=== PATIENT | male | born 1970 | race Caucasian/White ===

== ENCOUNTER 2017-12-21 12:56 | Outpatient (CLI) | payer MEDICARE | END 2017-12-21 12:57 | disposition home or self-care (01) | LOC: BICRAD 12:56 | PROVIDERS: ATTEND Internal Medicine Hematology & Oncology | DX: J18.9 Pneumonia, unspecified organism (principal); J90 Pleural effusion, not elsewhere classified; R91.8 Other nonspecific abnormal finding of lung field | CPT/HCPCS: 71046 ==

== ENCOUNTER 2017-12-21 14:47 | Day surgery (SDC) | payer MEDICARE ==
[2017-12-21 17:37] LABS: Pleural Fluid, Protein 4.8 g/dL
--- NOTE | 2017-12-21 17:39 | CON ---
DATE OF CONSULTATION: 12/21/2017 SERVICE: Pulmonary Medicine. REASON FOR CONSULTATION: Pleural effusion. HISTORY OF PRESENT ILLNESS: The patient is a very pleasant 47-year-old white male with past medical history significant for cough and congestion about a month ago. He was treated for flu and also a co urse of pneumonia. He was identified as having a small pleural effusion in the right lung. He had i ncreasing shortness of breath and presented for a routine evaluation and Oncology. The patient noted his progressive shortness of breath and repeat chest x-ray was performed demonstrated progression in his pleural effusion. At this point, it is quite large. He has serious orthopnea. He has not had any other types of lower extremity swelling, chest discomfort, palpitations, nausea and vomiting or d iarrhea. He has been belching quite a bit recently. Otherwise, there has been no interval change to his condition. He is having some febrile type symptoms and is experiencing some chills. PAST MEDICAL HISTORY: 1. Type 2 diabetes mellitus, resolved. 2. Hypertension. 3. Dyslipidemia. 4. 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 5. 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 PAST SURGICAL HISTORY: 1. Cholecystectomy. 2. Left shoulder surgery in 2017. 3. Inguinal hernia repair in 2016. 4. Umbilical hernia repair with mesh placement. 5. Back surgery in 2017. 6. Left knee surgery x2. FAMILY HISTORY: Noncontributory. He notes lung cancer, diabetes, and high blood pressure in primary family members. SOCIAL HISTORY: Negative for alcohol, tobacco or illicit drug use. He denies any exposure to chemic als, dusts, asbestos or tuberculosis. ALLERGIES: 1. LIBRIUM causes vomiting. 2. LISINOPRIL causes cough. MEDICATIONS: He did not bring a list of his medications with him today, so I do not have them for re view. I did review the medications that were listed in his current medication section of the Oncolog y note that accompanied him to his visit. There are no respiratory medications on it. REVIEW OF SYSTEMS: General, head, ears, eyes, nose, throat, cardiovascular, respiratory, GI, , mus culoskeletal, neurologic and skin is negative except as mention in the HPI. PHYSICAL EXAMINATION: VITAL SIGNS: Afebrile, pulse 87, respirations 14, saturation 91% on room air. GENERAL: The patient is awake, alert, no apparent distress. LUNGS: Decent air entry on the left. The right has decreased air entry. There are no crackles pres ent. HEART: Normal rate, regular. ABDOMEN: Soft, nontender, nondistended. Bowel sounds are positive. MUSCULOSKELETAL: No cyanosis or clubbing. No pitting in the bilateral lower extremities. NEUROLOGIC: Grossly nonfocal. LABORATORY DATA: WBC 10.3, hemoglobin 15.6, platelets 342,000. Comprehensive metabolic profile was previously unremarkable with a creatinine of 1.01. IMAGING: Chest x-ray demonstrates a large right-sided pleural effusion that is worse than 1 month ag o. ASSESSMENT: 1. Pleural effusion, not otherwise specified. 2. History of stage IV T-cell lymphoma, status post CHOP/etoposide therapy as well as autologous tyrel m cell transplant in 2014. PLAN: The patient will return to clinic in 1 week. We will set him up with a thoracentesis for this as soon as possible. If any of these results are abnormal, we will give him a phone call. If he garcia s any true fever, or starts feeling worse, he has been directed to present immediately to the emergen cy department.
[2017-12-21 17:50] LABS: BF Color Yellow; BF RBC Count - Manual 2385 /cumm; Body Fluid Source THORACENTESIS FLD; Clarity Hazy (Clear); Tube # 2
[2017-12-21 18:01] LABS: BF WBC/Nonhematics Ct. - Manua 275 /cumm; Cell Count Non Hematic 41 %; Lymphocytes 59 %
[2017-12-21 18:02] LABS: BF Segmented Neutrophils 1 %
--- NOTE | 2017-12-21 19:28 | OP ---
DATE OF SERVICE: 12/21/2017 SERVICE: Pulmonary Medicine. PROCEDURE: Right-sided pleural drainage with catheter insertion, under ultrasound guidance. CONSENT: Risks and benefits of the procedure were explained to the patient. All questions were answ ered and alternative options explained. STAFF PHYSICIAN: Edmond López M.D. MEDICATIONS USED: 1% lidocaine without epinephrine, a total quantity 10 mL PREPROCEDURE DIAGNOSES: 1. Pleural effusion. 2. Acute hypoxic respiratory failure. POSTOPERATIVE DIAGNOSES: 1. Pleural effusion. 2. Acute hypoxic respiratory failure. DESCRIPTION OF PROCEDURE: A timeout was performed by the procedure team and the patient. The patien t was positively identified using name and date of . The procedure site was marked. Vital sign s monitoring was accomplished by noninvasive hemodynamic monitoring, pulse oximetry, and telemetry. In the seated position, the right posterior hemithorax was examined using ultrasound probe. The diap hragm and pleural fluid was easily identified. The skin was prepped and draped in sterile fashion an d anesthetized with 1% lidocaine without epinephrine. A finder needle was inserted into the pleural space with return of clear yellow fluid was obtained. A pleural drainage catheter was then inserted in the same location. A total quantity of 4000 mL of the same pleural fluid was withdrawn by syringe pump technique. A sample was sent for analysis. Evacuation was terminated because the fluid stoppe d coming. At the end of the procedure, estimated pleural pressure, measured by manometry, was -7 cm of pleural fluid. The entire catheter was withdrawn on exhalation and a sterile dressing was applied . The patient had stable vital signs throughout the entire procedure. ESTIMATED BLOOD LOSS: Less than 2 mL COMPLICATIONS: None.
[2017-12-26 10:22] LABS: Fungus Stain Final report (.)
[2018-01-22 06:09] LABS: Fungus Culture Final report (.)
== END 2017-12-21 16:50 | disposition home or self-care (01) ==
LOC: SDC 14:47
PROVIDERS: ATTEND Internal Medicine
PROC: 0W993ZZ Drainage of Right Pleural Cavity, Percutaneous Approach (ICD-10-PCS; principal; 2017-12-21)
PROC: BB4BZZZ Ultrasonography of Pleura (ICD-10-PCS; 2017-12-21)
DX: J90 Pleural effusion, not elsewhere classified (principal); J96.01 Acute respiratory failure with hypoxia; E11.9 Type 2 diabetes mellitus without complications; I10 Essential (primary) hypertension; E78.5 Hyperlipidemia, unspecified; Z85.6 Personal history of leukemia; Z92.21 Personal history of antineoplastic chemotherapy; Z88.8 Allergy status to other drugs, medicaments and biological substances; Z91.011 Allergy to milk products; Z91.018 Allergy to other foods; Z91.048 Other nonmedicinal substance allergy status; Z88.5 Allergy status to narcotic agent; Z79.82 Long term (current) use of aspirin; Z79.899 Other long term (current) drug therapy
CPT/HCPCS: 32554; 82150; 82945; 83615; 83986; 84157; 84478; 85060; 87070; 87102; 87116; 87205; 87206; 88112; 88184; 88305; 89051; J1642

== ENCOUNTER 2017-12-29 13:14 | Day surgery (SDC) | payer MEDICARE ==
[2017-12-28 15:42] VITALS: BMI 31.8
[2017-12-29] MEDS ORDERED: Promethazine HCl 25 MG/ML VIAL ONE (14:09)
[2017-12-29] MEDS ORDERED: Fentanyl 250 MCG/5 ML VIAL ONE (14:09)
[2017-12-29] MEDS ORDERED: Midazolam HCl 2 mg/2 ml Vial ONE (14:09)
[2017-12-29] MEDS ORDERED: Lidocaine 1% (PF) 30 ML VIAL ONE (14:09)
[2017-12-29] MEDS ORDERED: Propofol 500 MG/50 ML VIAL ONE (14:11)
[2017-12-29 14:41] LABS: Anion Gap 16 mmol/L (10-20); BUN (Urea Nitrogen) 9 mg/dL (8.9-20.6); Calc. Creatinine Clearance 180 mL/min (70-130); Calcium 9.3 mg/dL (7.8-10.44); Carbon Dioxide 27 mmol/L (22-29); Chloride 97 mmol/L (98-107); Estimated GFR-MDRD Greater than 90; Glucose 111 mg/dL (70-105); Potassium 3.8 mmol/L (3.5-5.1); Sodium 136 mmol/L (136-145)
[2017-12-29 14:46] LABS: #Basophils 0.1 thou/uL (0.0-0.2); #Eosinphils 0.1 thou/uL (0.0-0.7); #Lymphocytes 1.7 thou/uL (1.20-3.40); #Neutrophils 5.5 thou/uL (1.40-6.50); %Basophils 0.7 % (0.0-1.0); %Lymphocytes 20.2 % (21.0-51.0); %Monocytes 11.4 % (0.0-10.0); %Neutrophils 66.6 % (42.0-75.0); Hemoglobin 16.7 g/dL (14.0-18.0); Mean Corpuscular HGB CONC 34.1 g/dL (32.0-36.0); Mean Corpuscular Volume 94.1 fl (80.0-94.0); Mean Platelet Volume 6.7 fL (7.4-10.4); Platelet Count 397 thou/uL (130-400); RBC Distribution Width 11.5 % (11.5-14.5); White Blood Cell (WBC) Count 8.3 thou/uL (4.8-10.8)
[2017-12-29] MEDS ORDERED: HYDROcodone/Acetaminophen 5/325 mg Tablet ONE (16:30)
--- NOTE | 2017-12-29 17:07 | OP ---
DATE OF PROCEDURE: 12/29/2017 PREOPERATIVE DIAGNOSIS: Recurrent right malignant pleural effusion. POSTOPERATIVE DIAGNOSIS: Recurrent right malignant pleural effusion. PROCEDURE: Right PleurX catheter placement. SURGEON: Gaetano Miller M.D. ANESTHESIA: IV sedation provided by Lois Vega CRNA and 1% lidocaine for local. DESCRIPTION OF PROCEDURE: After consent was obtained, the patient was brought to the operating room and placed in the supine position on the operating room table. Appropriate anesthetic monitor was pl aced and IV sedation begun. Right chest wall was prepped and draped in usual sterile fashion. 1% li docaine was used to anesthetize the chest wall. Skin incision was made for insertion of the guidewir e. Guidewire was inserted. Catheter was tunneled from the midclavicular line over to the guidewire access site. Peel peel-away sheath was then placed into the pleural cavity with good clear fluid ret urn. Catheter was passed through the peel-away sheath and sheath removed. Catheter was then connect ed to suction and 6750 mL of fluid evacuated. Catheter was secured with silk suture. The sheath acc ess site was closed with a 3-0 Vicryl. Sterile dressing was applied. The patient was transferred to the recovery area and home later today.
== END 2017-12-29 16:45 | disposition home or self-care (01) ==
LOC: SDC 13:14
PROVIDERS: ATTEND Thoracic Surgery (Cardiothoracic Vascular Surgery)
PROC: 0WH933Z Insertion of Infusion Device into Right Pleural Cavity, Percutaneous Approach (ICD-10-PCS; principal; 2017-12-29)
DX: C86.2 Enteropathy-type (intestinal) T-cell lymphoma (principal); J91.0 Malignant pleural effusion; E11.9 Type 2 diabetes mellitus without complications; I10 Essential (primary) hypertension; E78.5 Hyperlipidemia, unspecified; Z88.8 Allergy status to other drugs, medicaments and biological substances; Z88.5 Allergy status to narcotic agent; Z91.048 Other nonmedicinal substance allergy status; Z91.011 Allergy to milk products; Z91.018 Allergy to other foods; Z79.82 Long term (current) use of aspirin; Z79.899 Other long term (current) drug therapy; Z94.84 Stem cells transplant status
CPT/HCPCS: 80048; 85025; C1729; J2001; J2250; J2550; J2704; J3010

== ENCOUNTER 2018-01-04 17:00 | Outpatient (CLI) | payer MEDICARE | END 2018-01-04 17:01 | disposition home or self-care (01) | LOC: SLEEPLAB 17:00 | PROVIDERS: ATTEND Internal Medicine | DX: G47.33 Obstructive sleep apnea (adult) (pediatric) (principal); R51 Headache; R53.83 Other fatigue; R06.83 Snoring; K21.9 Gastro-esophageal reflux disease without esophagitis; R35.1 Nocturia; R09.02 Hypoxemia; R06.00 Dyspnea, unspecified | CPT/HCPCS: 95806 ==

== ENCOUNTER 2018-03-27 12:51 | Emergency (ER) | payer MEDICARE ==
[2018-03-27 14:04] LABS: #Eosinphils 0.1 thou/uL (0.0-0.7); #Lymphocytes 1.7 thou/uL (1.20-3.40); #Monocytes 0.1 thou/uL (0.11-0.59); #Neutrophils 3.6 thou/uL (1.40-6.50); %Basophils 0.3 % (0.0-1.0); %Eosinophils 1.3 % (0.0-10.0); %Lymphocytes 31.5 % (21.0-51.0); %Monocytes 1.2 % (0.0-10.0); %Neutrophils 65.8 % (42.0-75.0); Hemoglobin 10.2 g/dL (14.0-18.0); Mean Corpuscular HGB CONC 35.4 g/dL (32.0-36.0); Mean Corpuscular Hemoglobin 36.9 pg (27.0-31.0); Mean Platelet Volume 6.8 fL (7.4-10.4); Platelet Count 230 thou/uL (130-400); RBC Distribution Width 16.2 % (11.5-14.5); Red Blood Cell (RBC) Count 2.75 mill/uL (4.70-6.10); White Blood Cell (WBC) Count 5.5 thou/uL (4.8-10.8)
[2018-03-27 14:24] LABS: ALT (SGPT) 79 U/L (8-55); AST (SGOT) 37 U/L (5-34); Albumin 3.6 g/dL (3.5-5.0); Alkaline Phosphatase 59 U/L (40-150); Anion Gap 13 mmol/L (10-20); BUN (Urea Nitrogen) 16 mg/dL (8.9-20.6); Bilirubin, Total 0.7 mg/dL (0.2-1.2); Calc. Creatinine Clearance 0 mL/min (70-130); Calcium 9.2 mg/dL (7.8-10.44); Carbon Dioxide 25 mmol/L (22-29); Chloride 101 mmol/L (98-107); Estimated GFR-MDRD Greater than 90; Globulin 2.3 g/dL (2.4-3.5); Glucose 190 mg/dL (70-105); Potassium 4.2 mmol/L (3.5-5.1); Protein, Total 5.9 g/dL (6.0-8.3); Sodium 135 mmol/L (136-145)
[2018-03-27 14:29] LABS: CKMB 0.3 ng/mL (0-6.6); Troponin I Less than 0.010 ng/mL (< 0.028)
--- NOTE | 2018-03-27 15:25 | RAD ---
AP CHEST: Indication: Tachycardia and elevated hemoglobin with shortness of breath. FINDINGS: There is still elevation of the right hemidiaphragm. Left chest wall port is stable. There is some knight bsegmental volume loss within the left lower lobe which appears similar to a comparison exam dating which may reflect scar. No confluent airspace opacity, pleural effusion or pneumothorax evident . No acute osseous abnormality is evident. IMPRESSION: 1. No definite abnormality demonstrated. 2. Linear opacities involving the left lung mass may refer atelectasis. 3. Persistent elevation right hemidiaphragm. POS: [facility]
[2018-03-27 17:00] LABS: Bilirubin Negative (Negative); Blood, Urine Negative (Negative); Clarity CLEAR (Clear); Glucose, Urine (Dipstick) Negative (Negative); Leukocyte Negative (Negative); Nitrite Negative (Negative); Protein, Urine (Dipstick) Negative (Neg-Trace); Specific Gravity, Urine 1.015 (1.002-1.036); Urobilinogen 0.2 mg/dL (0.2-1.0); pH, Urine 5.5 (5.0-9.0)
--- NOTE | 2018-03-27 18:05 | CT ---
CT ANGIOGRAM OF THE CHEST 03/27/18 COMPARISON: 09/05/16 HISTORY: Tachycardia, pain, assess for pulmonary embolism. TECHNIQUE: Serial axial CT imaging obtained at 2.5 mm intervals from the thoracic inlet through the upper abdome n with IV contrast using a CT angiogram protocol. Oblique sagittal 3D reformatted imaging is obtained . FINDINGS: There is no axillary, mediastinal or hilar lymphadenopathy. There is a left sided Port-A-Cath with distal tip extending into the region of the superior vena cava . The imaged upper abdomen demonstrates cholecystectomy clips. There is trace pericardial fluid. No ple ural or mediastinal fluid is noted. There is no endobronchial lesion evident. There is adequate opacification of the pulmonary arterial vasculature. There is no filling defect id entified within the pulmonary arterial vasculature to suggest the presence of acute pulmonary embolis m. There is no pneumothorax noted. Lung parenchyma is grossly unremarkable aside from scattered linear a reas of scar/atelectasis in both lower lobes as well as within the anterior lateral lingula. No worri some osseous lytic or blastic bone lesion. IMPRESSION: No evidence for pulmonary embolism. POS: [facility]
== END 2018-03-27 19:13 | disposition home or self-care (01) ==
LOC: ERS 12:51
DX: R06.00 Dyspnea, unspecified (principal); C84.90 Mature T/NK-cell lymphomas, unspecified, unspecified site; I10 Essential (primary) hypertension; E11.9 Type 2 diabetes mellitus without complications
CPT/HCPCS: 36415; 71045; 71275; 80053; 81003; 82553; 84484; 85025; 93005; 96360